=== PATIENT | female | born 1960 | race Caucasian/White ===

== ENCOUNTER 2017-11-27 13:49 | Emergency (ER) | payer OTHER ==
[~2017-11-27] VITALS: Ht 152.4 cm; Wt 75.7 kg
[~2017-11-27 13:49] MED LIST: ALBUAER2 INH; CLX20 PO; CRDCD240 PO; FLUT0.0529 NAE; LEVO-459 PO; PRLSR20 PO; SPIR25TA PO; TOPI25TA99 PO
[2017-11-27 13:51] VITALS: TEMP 37.5; Ht 152.4 cm; Wt 75.7 kg
[2017-11-27] MEDS ORDERED: SODIUM CHLORIDE 0.9% 1000ML 1,000 ML IV STA (14:11)
[2017-11-27] MEDS ORDERED: ONDANSETRON INJ 2 MG/ML 2 ML VIAL IV STA (14:11)
--- NOTE | 2017-11-27 14:17 | EMERGENCY ROOM VISIT NOTE ---
History First contact with patient: 13:57 Chief Complaint: FLU LIKE SX Stated Complaint: FLU, DIARRHEA History of Present Illness The patient is a 57 year old female who presents to the Emergency Room with complaints of vomiting and diarrhea since . The patient states last , she was not feeling well and was unable to keep any food or liquids down. She states that it improved for the next few days, but yesterday her symptoms returned. The patient states the diarrhea is liquid. She has gone several times in the past 24 hours. She states on she had the same type of episode. She did not move her bowels at all from Saturday until Saturday. The patient has taken no medications for her symptoms. She denies any upper respiratory infection symptoms including congestion, runny nose, sore throat, cough, dyspnea, chest pain. She states she did not check her temperature, but did have significant chills overnight. She describes some lower abdominal pain which she describes as like a twisting sensation and crampy. She does have some diffuse tenderness throughout the abdomen. The pain comes and goes. The patient did contact her PCP and Dr. Pollock, who she does know personally. It was recommended that she come to the emergency department for IV fluids. The patient does have a history of diverticulitis with abscess/rupture. She states her symptoms now do not feel like her previous episodes of diverticulitis. Review of Systems A complete 10 point review of systems was reviewed with the patient with pertinent positives and negatives as per history of present illness. All else were negative. Past Medical/Surgical History Medical Problems: (1) Benign hypertension (2) Depression (3) Diverticulitis of colon (4) Esophagitis (5) Shortness of breath Social History Smoking Status: Never Smoker Alcohol Use: none Drug Use: none Marital Status: Housing Status: lives with family Occupation Status: employed Current/Historical Medications Scheduled Citalopram (Citalopram Hydrobromide), 20 MG PO DAILY Diltiazem Hcl (Diltiazem Cd), 240 MG PO DAILY Spironolactone (Aldactone), 50 MG PO DAILY Topiramate (Topamax ), 25 MG PO DAILY Physical Exam Vital Signs Date Time Temp Pulse Resp B/P (MAP) Pulse Ox O2 Delivery O2 Flow Rate FiO2 11/27/17 15:08 85 16 106/65 94 Room Air 11/27/17 13:51 37.5 106 18 130/86 96 Room Air Physical Exam VITALS: Vitals are noted on the nurse's note and reviewed by myself. Vital signs stable. GENERAL: This is a 57-year-old white female, in no acute distress, nondiaphoretic, well-developed well-nourished. SKIN: The skin was without rashes, erythema, edema, or bruising. There is no tenting of the skin. Capillary reflex less than 2 seconds. HEAD: Normocephalic atraumatic. EARS: External auditory canals clear, tympanic membranes pearly paredes without erythema or effusion bilaterally. EYES: Pupils equal round and reactive to light and accommodation. Conjunctivae without injection, sclerae without icterus. Extraocular movements intact. NOSE: Patent, turbinates without inflammation or discharge. No sinus tenderness. MOUTH: Mucous membranes moist. Tonsils are not enlarged. Pharynx without erythema or exudate. Uvula midline. Airway patent. Tongue does not deviate. NECK: Supple without nuchal rigidity. No lymphadenopathy. No thyromegaly. Cervical spine is nontender. No JVD. HEART: Regular rate and rhythm without murmurs gallops or rubs. LUNGS: Clear to auscultation bilaterally without wheezes, rales or rhonchi. No dullness to percussion. No retractions or accessory muscle use. ABDOMEN: Positive bowel sounds x 4. Normal tympanic percussion. Mild tenderness in the lower abdomen/pelvis. This was not in any specific location, and not over McBurney's point. The abdomen was soft, otherwise nontender, without masses or organomegaly. García sign negative. No guarding or rebound tenderness. Rovsing's negative. MUSCULOSKELETAL: No muscle atrophy, erythema, or edema noted. Full range of motion without joint tenderness in all extremities. No tenderness to palpation. Normal gait. Strength 5/5 throughout. NEURO: Patient was alert and oriented to person place and time. Normal sensation to light and sharp touch. Deep tendon reflexes 2+ throughout. No focal neurological deficits. Medical Decision & Procedures ER Provider Diagnostic Interpretation: CBC was without leukocytosis, anemia, thrombocytopenia. CMP shows elevated AST, ALT, and alkaline phosphatase. Otherwise, without renal or electrolyte abnormalities. Lipase was normal. Laboratory Results 11/27/17 14:20 Red Blood Count 4.78, Mean Corpuscular Volume 88.7, Mean Corpuscular Hemoglobin 29.3, Mean Corpuscular Hemoglobin Concent 33.0, Mean Platelet Volume 10.0, Neutrophils (%) (Auto) 78.5, Lymphocytes (%) (Auto) 8.5, Monocytes (%) (Auto) 12.4, Eosinophils (%) (Auto) 0.1, Basophils (%) (Auto) 0.4, Neutrophils # (Auto ) 5.51, Lymphocytes # (Auto) 0.60, Monocytes # (Auto) 0.87, Eosinophils # (Auto ) 0.01, Basophils # (Auto) 0.03 11/27/17 14:20 Test 11/27/17 14:20 White Blood Count 7.03 K/uL (4.8-10.8) Red Blood Count 4.78 M/uL (4.2-5.4) Hemoglobin 14.0 g/dL (12.0-16.0) Hematocrit 42.4 % (37-47) Mean Corpuscular Volume 88.7 fL (80-100) Mean Corpuscular Hemoglobin 29.3 pg (25-34) Mean Corpuscular Hemoglobin Concent 33.0 g/dl (32-36) Platelet Count 200 K/uL (130-400) Mean Platelet Volume 10.0 fL (7.4-10.4) Neutrophils (%) (Auto) 78.5 % Lymphocytes (%) (Auto) 8.5 % Monocytes (%) (Auto) 12.4 % Eosinophils (%) (Auto) 0.1 % Basophils (%) (Auto) 0.4 % Neutrophils # (Auto) 5.51 K/uL (1.4-6.5) Lymphocytes # (Auto) 0.60 K/uL (1.2-3.4) Monocytes # (Auto) 0.87 K/uL (0.11-0.59) Eosinophils # (Auto) 0.01 K/uL (0-0.5) Basophils # (Auto) 0.03 K/uL (0-0.2) RDW Standard Deviation 49.8 fL (36.4-46.3) RDW Coefficient of Variation 15.5 % (11.5-14.5) Immature Granulocyte % (Auto) 0.1 % Immature Granulocyte # (Auto) 0.01 K/uL (0.00-0.02) Anion Gap 8.0 mmol/L (3-11) Est Creatinine Clear Calc Drug Dose 69.6 ml/min Estimated GFR () 92.0 Estimated GFR (Non- 79.4 BUN/Creatinine Ratio 19.1 (10-20) Calcium Level 9.4 mg/dl (8.5-10.1) Total Bilirubin 1.0 mg/dl (0.2-1) Aspartate Amino Transf (AST/SGOT) 64 U/L (15-37) Alanine Aminotransferase (ALT/SGPT) 86 U/L (12-78) Alkaline Phosphatase 121 U/L (45-117) Total Protein 7.0 gm/dl (6.4-8.2) Albumin 3.9 gm/dl (3.4-5.0) Globulin 3.1 gm/dl (2.5-4.0) Albumin/Globulin Ratio 1.2 (0.9-2) Lipase 122 U/L (73-393) Medications Administered Medications (Trade) Dose Ordered Sig/Rashid Route Start Time Stop Time Status Last Admin Dose Admin Sodium Chloride 1,000 ml @ 999 mls/hr Q1H1M STAT IV 11/27/17 14:11 11/27/17 15:11 DC 11/27/17 14:35 999 MLS/HR Ondansetron HCl (Zofran Inj) 4 mg NOW STAT IV 11/27/17 14:11 11/27/17 14:13 DC 11/27/17 14:35 4 MG ED Course The patient was seen and evaluated as above. IV access obtained, labs drawn. The patient was given 1 L normal saline solution and 4 mg Zofran IV. I did reassess the patient. She states she is feeling about the same. She has not had any episodes of diarrhea or vomiting while here in the emergency department. She was unable to provide a urine or stool sample. I encourage the patient to eat while here in the emergency department to verify that she is able to tolerate foods and liquids. The patient ate applesauce, crackers, and some dwayne vicenta without vomiting or experiencing diarrhea. I asked the patient if there is anything else I could do to make her feel better, and she states no. I did offer the patient antidiarrheals while here in the emergency department, and she declines. Discharge instructions reviewed, and the patient was discharged home in good condition. Medical Decision Etiologies such as appendicitis, diverticulitis, obstruction, inflammatory bowel disease, renal colic, PUD, biliary pathology, pancreatitis, mesenteric ischemia, aortic pathology, infections, gastroenteritis, genitourinary, UTI, perforated viscus, as well as others were entertained. The patient presents today complaining of ringing and diarrhea which has been intermittent since last . She states she is unable to tolerate any food or liquids. The patient did contact her PCP as well as Dr. Pollock, director of personnel who she knows personally, and was encouraged to come to the emergency department. She states she does have a prescription of Zofran at the pharmacy from her PCP that she needs to fill. Basic labs were drawn, and did show slightly elevated liver function studies. The patient was encouraged to follow up with her PCP regarding this finding. The patient was unable to provide a stool or urine sample while here in the emergency department. She was given 1 L normal saline solution, and states she did not feel significantly improved. I do suspect a viral gastroenteritis, and I advised the patient that management included symptomatic treatment. I encouraged her to follow up with her PCP if she is not experiencing improvement in one week. She was also given instructions on when to return to the emergency department if her symptoms worsen. Medication Reconcilliation Current Medication List: was personally reviewed by me Blood Pressure Screening Patient's blood pressure: Normal blood pressure Impression Primary Impression: Gastroenteritis Departure Information Dispostion Home / Self-Care Condition GOOD Referrals Valente Wood M.D. (PCP) Patient Instructions ED Gastroenteritis Viral, My [facility] Additional Instructions You have been treated in the Emergency Department your Abdominal Pain. Laboratory results have ruled out any emergent causes for your abdominal pain which would warrant admission or surgery. We did not perform imaging at this time, however, if your abdominal pain worsens, return to the ED for imaging to evaluate for possible surgical etiologies. You have been prescribed Zofran to be used for any nausea or vomiting. Take as prescribed. As discussed, your LFTs were slightly elevated. Please follow-up with your PCP regarding this finding. For pain control, you can use the following [id number] medicines (if >12 yo): Ibuprofen(Motrin, Advil) may be used for fever or pain. Use 600mg every six hours as needed. Take with food. Avoid using more than 2400mg in a 24 hour period. Do not use 2400mg per day for more than three consecutive days without physician direction. Prolonged inappropriate use can lead to stomach upset or ulcers. (AND/OR) Acetaminophen(Tylenol) may be used for fever or pain. Use 1000mg every six hours as needed. Avoid using more than 3000mg in a 24 hour period. Drink plenty of water/electrolyte solution and stay well hydrated. You may consider Imodium OTC for diarrhea as directed. Consider a bland diet and avoid dairy. As with any trip to the Emergency Department, you should follow-up with your Primary Care Provider from today's visit. Return to the emergency department if your symptoms persist despite treatment plan outlined above or if the following symptoms occur: increased fevers, chills , worsening nausea/vomiting, blood in your stool or urine.
[2017-11-27 14:42] LABS: BASO % 0.4 %; BASO ABS # 0.03 K/uL (0-0.2); COMPLETE YES; EOS % 0.1 %; HEMATOCRIT 42.4 % (37-47); IG% 0.1 %; LYMPH % 8.5 %; MEAN CELL VOLUME 88.7 fL (80-100); MEAN CORPUSCULAR HEMOGLOBIN 29.3 pg (25-34); MONO % 12.4 %; NEUT % 78.5 %; PLATELET COUNT 200 K/uL (130-400); RED BLOOD COUNT 4.78 M/uL (4.2-5.4); WHITE BLOOD COUNT 7.03 K/uL (4.8-10.8)
[2017-11-27 15:00] LABS: BUN/CREATININE RATIO 19.1 (10-20); CALCIUM 9.4 mg/dl (8.5-10.1); CREATININE 0.83 mg/dl (0.60-1.20); POTASSIUM 3.4 mmol/L (3.5-5.1)
[2017-11-27 15:03] LABS: ALB/GLOB RATIO 1.2 (0.9-2)
[2017-11-27] MEDS ORDERED: SPIR50TA3 PO (15:03)
[2017-11-27] MEDS ORDERED: CLX20 PO (15:03)
[2017-11-27] MEDS ORDERED: DLTCD/240 PO (15:03)
[2017-11-27 16:33] VITALS: BP 116/68; PULSE 79; O2SAT 93
== END 2017-11-27 16:28 | disposition home or self-care (01) ==
LOC: C.EDB 13:50
DX: K52.9 Noninfective gastroenteritis and colitis, unspecified (principal); I10 Essential (primary) hypertension; F32.9 Major depressive disorder, single episode, unspecified; Z79.899 Other long term (current) drug therapy

== ENCOUNTER 2020-03-22 15:34 | Observation (INO) ==
--- OUTSIDE RECORDS SUMMARY | 2020-03-22 15:36 | External Medical Summary | Continuity of Care Document ---
:1960 Author Name Renetta Coronado, Provider Address Unavailable Unavailable , Care Team Providers Name Role Phone April Lawson PA-C Unavailable [email or web address] [employer] DO Unavailable [email or web address] Marian Paz M.D. 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) Abdominal pain (789.00) (R10.9) Diverticulitis of colon (562.11) (K57.32) Anxiety (300.00) (F41.9) Hypertension (401.9) (I10) Acute sinusitis (461.9) (J01.90) Esophageal reflux (530.81) (K21.9) Shortness of breath (786.05) (R06.02) Acute bronchitis (466.0) (J20.9) Nephrolithiasis (592.0) (N20.0) Encounter for routine gynecological examination (V72.31) (Z0 1.419) Palpitations (785.1) (R00.2) Microscopic hematuria (599.72) (R31.29) Hyperlipidemia (272.4) (E78.5) Impaired fasting glucose (790.21) (R73.01) Migraine headache (346.90) (G43.909) Allergies and Adverse Reactions Aldactazide TABS (Allergy) Reaction: Oth er Lasix TABS (Allergy) Medications [facility] Omeprazole 20 MG Oral Tablet Delayed Release; Take 1 tablet daily BLADE Lawson Quantity: 30 Refills: 5 Maxalt-EMBROIDERY SPECIALIST 10 MG Oral Tablet Disintegrat ing; TAKE 1 TABLET AT ONSET OF HEADACHE. MAY REPEAT EVERY 2 HOURS NEEDED. MAXIMUM 3 TABLETS IN 24 HOURS. Ivonne Paz Quantity: 9 Refills: 5 Propoxyphene N-Acetaminophen 100-650 MG TABS; 1-2 TABS Q 6HR PRN PAIN Ivonne Paz Quantity: 90 Refills: 0 Dyazide 37.5-25 MG Oral Capsule; TAKE 1 CAPSULE DAILY. Refills: 0 Procedures History of Colostomy Status: Completed History of Hernia Repair Status: Complet ed History of Elbow Surgery Status: Complet ed History of Exploratory Laparotomy Status : Completed History of Gallbladder Surgery Status: C ompleted History of Type 2 diabetes mellitus Stat us: Completed History of Hypertension Status: Complete d Immunizations Immunizations not documented Family History Father Family history of Colon Cancer (V16.0) Status: Active Social History - Smoking Status Tobacco smoking consumption unknown Plan of Treatment Planned Observations Planned Goals not documented Results No Known Results Results not documented
--- OUTSIDE RECORDS SUMMARY | 2020-03-22 15:36 | External Medical Summary | Continuity of Care Document ---
:1960 Author Name Renetta Coronado, Provider Address Unavailable Unavailable , Care Team Providers Name Role Phone April Lawson PA-C Unavailable [email or web address] Cable DO Unavailable [email or web address] Marian Paz M.[email or web address]. 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
[2020-03-22 16:09] LABS: Basophils # (auto) 0.05 K/uL (0-0.2); Basophils % (auto) 0.7 %; Eosinophils # (auto) 0.16 K/uL (0-0.5); Eosinophils % (auto) 2.2 %; Hematocrit (blood only) 46.4 % (37-47); Hemoglobin 15.5 g/dL (12.0-16.0); Immature Granulocytes # (auto) 0.01 K/uL (0.00-0.02); Immature Granulocytes % (auto) 0.1 %; Lymphocytes # (auto) 2.25 K/uL (1.2-3.4); Lymphocytes % (auto) 30.8 %; Mean Corpuscular Hemoglobin 31.1 pg (25-34); Mean Corpuscular Hgb Conc 33.4 g/dL (32-36); Mean Platelet Volume 10.2 fL (7.4-10.4); Monocytes # (auto) 0.79 K/uL (0.11-0.59); Monocytes % (auto) 10.8 %; Neutrophils # (auto) 4.05 K/uL (1.4-6.5); Neutrophils % (auto) 55.4 %; Platelet Count 261 K/uL (130-400); RDW Coefficient of Variation 14.1 % (11.5-14.5); RDW Standard Deviation 47.9 fL (36.4-46.3); Red Blood Count 4.99 M/uL (4.2-5.4); White Blood Count 7.31 K/uL (4.8-10.8)
--- NOTE | 2020-03-22 16:10 | Emergency Department Note ---
Impression & Plan Chest pain ED Provider Note Provider: Sha Sr MD DATE OF SERVICE: 03/22/2020 CHIEF COMPLAINT: Chest pressure/pain HISTORY OF PRESENT ILLNESS: Patient is a 59-year-old female with a past medical history of asthma, GERD, prediabetes, IBS presenting today with report of chest pressure and pain over about 4 days. States is worse with exertion better at rest but sometimes does occur at rest. Patient states she has felt increasingly short of breath walking. Denies any palpitations or diaphoresis. Central chest pressures with some radiation to left side of the chest and shoulder. No trauma. No fever. No URI symptoms. No sick contacts. No travel. No leg swelling. Patient denies any GI symptomatologies. Patient states she tried her home albuterol nebulizer nebulizer without change and this does not feel like her asthma to her. Patient is a non-smoker. Referred from her primary doctor's office and arrived via private vehicle due to lateral EKG new T wave inversions noted there. Did review prior chest pain admission and rule out in December 2018. Given 4 baby aspirin in the PCPs office. REVIEW OF SYSTEMS: A total of 10 review of systems was obtained and negative except as stated above in the HPI. 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. Non-smoker. Lives with son PHYSICAL EXAM: GENERAL: alert and oriented in no acute distress on stretcher in face mask Head: normocephalic and atraumatic EYES: No injection, discharge or icterus. NECK: Trachea midline without obvious mass. ENT: Mucous membranes pink and moist. LUNGS: Airway patent. No retractions. Breath sounds clear with good air entry bilaterally. HEART: Regular rate and rhythm. No chest wall tenderness ABDOMEN: Soft and non-tender, without guarding or rebound. SKIN: Acyanotic, warm, dry, without rashes EXTREMITIES: Without swelling, tenderness or deformity NEUROLOGICAL: No focal deficits. No aphasia. No facial droop or slurred speech. EK bpm normal sinus rhythm. No PVC. No acute ST segment elevations noted. QTc normal. Lateral T wave inversions V4 V5 V6 appears new compared to December 152018. CONTINUOUS CARDIAC MONITORING: was ordered and showed a heart rate of bpm in NSR Patient's hypertension was referred to the hospitalist/PCP HOSPITAL COURSE: 1548 Patient was first seen and H&P performed. 172 Patient reassessed and updated. Patient was with decreased pressure across her chest 180 patient was updated with results. Discussed plan of care. 1809 Discussed with [facility] Hospitalist team Patient's laboratory studies and imaging reviewed. Differential includes Cardiac ischemia, aortic dissection, pulmonary embolism, pneumothorax, pneumonia, pericarditis, myocarditis, esophageal rupture, GERD, cholecystitis, pancreatitis, musculoskeletal, as well as other pathologies. IMPRESSION/MEDICAL DECISION MAKING: Patient presents with several days of chest pressure with some shortness of breath. Denies any fever URI symptoms. Doubt this represents coronavirus. Lower suspicion for infection. Doubt dissection. Benign abdomen. EKG does n ote today new lateral T wave inversions. D-dimer sent troponin and basic labs. D-dimer was sent to help exclude PE was elevated. CT of the chest was completed. Does have concerning features for ACS. Laboratory studies likely reveal no signs of anemia or leukocytosis. X-ray is clear. Patient story is highly concerning. The new EKG findings all not specific are concerning for cardiac issues. Discussed with the patient recommend further observation here in the hospital. She is in agreement this plan. DIAGNOSIS: Chest pain DISPOSITION: Hospitalist will evaluate Past Med/Surg History Social History Preferred Language: Albanian Communication Ability: Effective Beliefs That Will Affect Care: Yazidi Yazidi Beliefs: Scientology Current Living Situation: Family Feels Safe at Home: Yes Smoking Status: Never smoker Second Hand Exposure: No ; Hx Alcohol Use: Yes Alcohol type: wine Hx Substance Use: No Allergies Allergies Allergy/AdvReac Type Severity Reaction Status Date / Time adhesive Allergy Unknown Rash Verified 03/22/20 16:27 chocolate flavor Allergy Unknown Unknown Verified 03/22/20 16:27 amoxicillin [From Augmentin] Allergy Rash Verified 03/22/20 16:27 clavulanic acid Allergy Rash Verified 03/22/20 16:27 [From Augmentin] peanut AdvReac Intermediate NUTS,PEANUTS-ABDOMINAL Verified 03/22/20 16:27 PAIN Home Meds Home Medications Medication Instructions Recorded Confirmed albuterol sulfate 2.5 mg INHALATION QID PRN 12/15/18 03/22/20 albuterol sulfate [Proventil HFA] 2 puff INHALATION Q6H PRN 12/15/18 03/22/20 citalopram [Celexa] 20 mg PO QAM 12/15/18 03/22/20 diltiazem HCl 240 mg PO QAM 12/15/18 03/22/20 spironolactone 50 mg PO QAM 12/15/18 03/22/20 topiramate [Topamax] 50 mg PO QAM 03/22/20 03/22/20 Results & Data (ED) Vital Signs Vital Signs - 24 hr 03/22/20 15:34 03/22/20 15:41 03/22/20 15:44 Temperature 36.7 C Temperature Source Oral Pulse Rate 85 80 74 Pulse Rate from SpO2 Sensor 75 Respiratory Rate 19 18 Blood Pressure 156/102 H 156/98 H Blood Pressure Mean 120 111 Blood Pressure Position Sitting Pulse Oximetry 92 98 98 Oxygen Delivery Method Room Air Sepsis Recent Fever Within 48 Hours No Sepsis New/Unexplained Change in Mental Status No Sepsis Action Taken by Nursing No Action Required 03/22/20 15:47 03/22/20 15:50 03/22/20 16:00 Temperature Temperature Source Pulse Rate 77 78 78 Pulse Rate from SpO2 Sensor 76 79 78 Respiratory Rate 15 23 17 Blood Pressure Blood Pressure Mean Blood Pressure Position Pulse Oximetry 97 97 97 Oxygen Delivery Method Sepsis Recent Fever Within 48 Hours Sepsis New/Unexplained Change in Mental Status Sepsis Action Taken by Nursing 03/22/20 16:10 03/22/20 16:20 03/22/20 16:30 Temperature Temperature Source Pulse Rate 79 77 75 Pulse Rate from SpO2 Sensor 79 76 76 Respiratory Rate 16 15 15 Blood Pressure Blood Pressure Mean Blood Pressure Position Pulse Oximetry 97 97 96 Oxygen Delivery Method Sepsis Recent Fever Within 48 Hours Sepsis New/Unexplained Change in Mental Status Sepsis Action Taken by Nursing 03/22/20 16:40 03/22/20 16:50 03/22/20 17:00 Temperature Temperature Source Pulse Rate 71 79 77 Pulse Rate from SpO2 Sensor 71 79 77 Respiratory Rate 13 14 13 Blood Pressure Blood Pressure Mean Blood Pressure Position Pulse Oximetry 97 96 96 Oxygen Delivery Method Sepsis Recent Fever Within 48 Hours Sepsis New/Unexplained Change in Mental Status Sepsis Action Taken by Nursing 03/22/20 17:10 03/22/20 17:20 03/22/20 17:30 Temperature Temperature Source Pulse Rate 78 82 80 Pulse Rate from SpO2 Sensor 78 83 79 Respiratory Rate 12 14 16 Blood Pressure Blood Pressure Mean Blood Pressure Position Pulse Oximetry 96 96 96 Oxygen Delivery Method Sepsis Recent Fever Within 48 Hours Sepsis New/Unexplained Change in Mental Status Sepsis Action Taken by Nursing 03/22/20 17:31 Temperature Temperature Source Pulse Rate 78 Pulse Rate from SpO2 Sensor 79 Respiratory Rate 13 Blood Pressure 131/90 Blood Pressure Mean 99 Blood Pressure Position Pulse Oximetry 95 Oxygen Delivery Method Sepsis Recent Fever Within 48 Hours Sepsis New/Unexplained Change in Mental Status Sepsis Action Taken by Nursing Laboratory Data Result diagrams: 03/22/20 15:57 03/22/20 15:57 Lab Results 03/22/20 03/22/20 03/22/20 Range/Units 15:57 15:57 15:57 WBC 7.31 (4.8-10.8) K/uL RBC 4.99 (4.2-5.4) M/uL Hgb 15.5 (12.0-16.0) g/dL Hct 46.4 (37-47) % MCV 93.0 (80-100) fL MCH 31.1 (25-34) pg MCHC 33.4 (32-36) g/dL RDW Std Deviation 47.9 H (36.4-46.3) fL RDW Coeff of Holly 14.1 (11.5-14.5) % Plt Count 261 (130-400) K/uL MPV 10.2 (7.4-10.4) fL Immature Gran % (Auto) 0.1 % Neut % (Auto) 55.4 % Lymph % (Auto) 30.8 % Garrard % (Auto) 10.8 % Eos % (Auto) 2.2 % Baso % (Auto) 0.7 % Immature Gran # (Auto) 0.01 (0.00-0.02) K/uL Neut # (Auto) 4.05 (1.4-6.5) K/uL Lymph # (Auto) 2.25 (1.2-3.4) K/uL Garrard # (Auto) 0.79 H (0.11-0.59) K/uL Eos # (Auto) 0.16 (0-0.5) K/uL Baso # (Auto) 0.05 (0-0.2) K/uL PT Cancelled INR Cancelled APTT Cancelled PTT Ratio Cancelled D-Dimer Cancelled Sodium 140 (136-145) mmol/L Potassium 3.4 L (3.5-5.1) mmol/L Chloride 110 H (98-107) mmol/L Carbon Dioxide 24 (21-32) mmol/L Anion Gap 6.0 (3-11) BUN 19 H (7-18) mg/dl Creatinine 1.12 (0.6-1.2) mg/dl Est Cr Clr Drug Dosing 56.3 ml/min Est GFR ( Amer) 63.1 Est GFR (Non-Af Amer) 54.5 BUN/Creatinine Ratio 17.1 (10-20) Glucose 111 H (70-99) mg/dl Calcium 9.9 (8.5-10.1) mg/dl Magnesium 2.2 (1.8-2.4) mg/dl Total Bilirubin 0.3 (0.2-1) mg/dl AST 14 L (15-37) U/L ALT 27 (12-78) U/L Alkaline Phosphatase 84 (45-117) U/L Troponin I < 0.015 (0-0.045) ng/ml Total Protein 7.1 (6.4-8.2) gm/dl Albumin 4.4 (3.4-5.0) gm/dl Globulin 2.7 (2.5-4.0) gm/dl Albumin/Globulin Ratio 1.6 (0.9-2) Lipase 173 (73-393) U/L 03/22/20 Range/Units 16:35 WBC (4.8-10.8) K/uL RBC (4.2-5.4) M/uL Hgb (12.0-16.0) g/dL Hct (37-47) % MCV (80-100) fL MCH (25-34) pg MCHC (32-36) g/dL RDW Std Deviation (36.4-46.3) fL RDW Coeff of Holly (11.5-14.5) % Plt Count (130-400) K/uL MPV (7.4-10.4) fL Immature Gran % (Auto) % Neut % (Auto) % Lymph % (Auto) % Garrard % (Auto) % Eos % (Auto) % Baso % (Auto) % Immature Gran # (Auto) (0.00-0.02) K/uL Neut # (Auto) (1.4-6.5) K/uL Lymph # (Auto) (1.2-3.4) K/uL Garrard # (Auto) (0.11-0.59) K/uL Eos # (Auto) (0-0.5) K/uL Baso # (Auto) (0-0.2) K/uL PT 11.0 INR 1.0 APTT 25.8 PTT Ratio 0.9 D-Dimer 540 H* Sodium (136-145) mmol/L Potassium (3.5-5.1) mmol/L Chloride (98-107) mmol/L Carbon Dioxide (21-32) mmol/L Anion Gap (3-11) BUN (7-18) mg/dl Creatinine (0.6-1.2) mg/dl Est Cr Clr Drug Dosing ml/min Est GFR ( Amer) Est GFR (Non-Af Amer) BUN/Creatinine Ratio (10-20) Glucose (70-99) mg/dl Calcium (8.5-10.1) mg/dl Magnesium (1.8-2.4) mg/dl Total Bilirubin (0.2-1) mg/dl AST (15-37) U/L ALT (12-78) U/L Alkaline Phosphatase (45-117) U/L Troponin I (0-0.045) ng/ml Total Protein (6.4-8.2) gm/dl Albumin (3.4-5.0) gm/dl Globulin (2.5-4.0) gm/dl Albumin/Globulin Ratio (0.9-2) Lipase (73-393) U/L Administered Medications Ioversol (Optiray 320 125ml) 119 ml IV ONCE PRN PRN Reason: Interaction Checking Stop: 03/26/20 17:50 Last Admin: 03/22/20 17:51 Dose: 119 ml Documented by: [id number] Discharge Plan Visit Data Chief Complaint: Chest Pain Stated Complaint: CHEST PAIN ED Provider: Sha Sr Discharge Problem: Chest pain Forms Stand Alone Forms: [facility] Prescriptions Prescriptions: No Action albuterol sulfate 2.5 mg /3 mL (0.083 %) Solution For Nebulization 2.5 mg INHALATION QID PRN (Reason: Shortness Of Breath Or Wheezing) RF: 0 diltiazem HCl 240 mg Capsule,Extended Release 24 Hr 240 mg PO QAM RF: 0 citalopram [Celexa] 20 mg Tablet 20 mg PO QAM RF: 0 albuterol sulfate [Proventil HFA] 90 mcg/actuation Hfa Aerosol Inhaler 2 puff INHALATION Q6H PRN (Reason: Shortness Of Breath Or Wheezing) RF: 0 spironolactone 50 mg Tablet 50 mg PO QAM RF: 0 topiramate [Topamax] 50 mg Tablet 50 mg PO QAM RF: 0 Discharge Problem: Chest pain Qualifiers: Chest pain type: unspecified Qualified Code(s): R07.9 - Chest pain, unspecified
[2020-03-22 16:28] LABS: Alanine Aminotransferase 27 U/L (12-78); Albumin Level 4.4 gm/dl (3.4-5.0); Aspartate Aminotransferase 14 U/L (15-37); BUN Creatinine Ratio 17.1 (10-20); Blood Urea Nitrogen 19 mg/dl (7-18); Calcium 9.9 mg/dl (8.5-10.1); Carbon Dioxide 24 mmol/L (21-32); Chloride 110 mmol/L (98-107); Creatinine Clr Calc Pharmacy 56.3 ml/min; Est GFR (African American) 63.1; Est GFR (Non-African American) 54.5; Glucose 111 mg/dl (70-99); Lipase 173 U/L (73-393); Magnesium 2.2 mg/dl (1.8-2.4); Potassium 3.4 mmol/L (3.5-5.1); Sodium 140 mmol/L (136-145)
[2020-03-22 16:33] LABS: Albumin Globulin Ratio 1.6 (0.9-2); Alkaline Phosphatase 84 U/L (45-117); Bilirubin,Total 0.3 mg/dl (0.2-1); Globulin 2.7 gm/dl (2.5-4.0); Total Protein 7.1 gm/dl (6.4-8.2); Troponin I < 0.015 ng/ml (0-0.045)
--- NOTE | 2020-03-22 16:38 | XRay Report ---
XR chest 1V portable HISTORY: 59 years-old Female Chest Pain acute atypical chest pain COMPARISON: Chest radiographs and CTA chest 12/15/2018 TECHNIQUE: Portable AP view of the chest FINDINGS: Cardiac silhouette is mildly enlarged. Mild right hemidiaphragmatic elevation. No pneumothorax, pleur al effusion, airspace consolidation or overt pulmonary edema. Bones of the chest appear grossly intac t. Cholecystectomy. IMPRESSION: No acute process. ACT 112: Negative or not required by law. The above report was generated using voice recognition software. It may contain grammatical, syntax o r spelling errors. Electronically signed by: Kingsley Ferraor M.D. 03/22/2020 4:37 PM
--- NOTE | 2020-03-22 16:40 | Electrocardiogram Report ---
Test Reason : Blood Pressure : / mmHG Vent. Rate : 069 BPM Atrial Rate : 069 BPM P-R Int : 168 ms QRS Dur : 096 ms QT Int : 382 ms P-R-T Axes : 036 -18 016 degrees QTc Int : 409 ms Normal sinus rhythm Nonspecific T wave abnormality Abnormal ECG When compared with ECG of 15-DEC-2018 17:02, Nonspecific T wave abnormality now evident in Anterolateral leads Confirmed by Dayday Bullock ([id number]) on 03/22/2020 4:40:36 PM Referred By: Confirmed By:Guerrero Bullock
[2020-03-22 17:05] LABS: Partial Thromboplastin Ratio 0.9; Partial Thromboplastin Time 25.8 Seconds (21.0-31.0)
[2020-03-22 17:43] LABS: D Dimer 540 ug/L FEU (0-500)
[2020-03-22] MEDS ORDERED: OPTIRAY 320 125ml IV PRN (17:51)
--- NOTE | 2020-03-22 18:14 | CT Scan Report ---
CT angio chest PE protocol CT DOSE: 497.70 mGy.cm HISTORY: 59 years-old Female with PE, CP, +dimer. Acute chest pain with elevated d-dimer TECHNIQUE: Multiple CTA images of the chest were obtained after the intravenous administration of 119 ml Optiray 320. Coronal and sagittal MIPS were obtained from the axial data set and were submitted for review. All measurements were obtained according to NASCET criteria. A dose lowering technique w as utilized adhering to the principles of ALARA. COMPARISON: Chest radiograph of same day, CTA chest 12/15/2018 FINDINGS: CTA: Mild cardiomegaly. No pleural effusion. No thoracic aortic aneurysm or dissection. There is patency o f the imaged great vessels. The pulmonary arterial tree is opacified to level of the subsegmental bra nches and demonstrates no filling defects to suggest pulmonary thromboembolic disease. CT CHEST: Unremarkable thyroid. There is no adenopathy. No pneumothorax, pleural effusion, overt pulmonary cathie a or airspace consolidation typical for pneumonia. Central airways appear patent. Tiny hiatal hernia. 10 mm hypodense left adrenal nodule compatible with adenoma. Cholecystectomy. Soft tissues and image d breast parenchyma appear unremarkable. Bones appear intact. IMPRESSION: 1. Mild cardiomegaly without acute intrathoracic abnormality, specifically there is no evidence of pu lmonary thromboembolic disease. 2. No pleural effusion or adenopathy. 3. Tiny hiatal hernia. 4. Cholecystectomy. ACT 112: Negative or not required by law. The above report was generated using voice recognition software. It may contain grammatical, syntax o r spelling errors. Electronically signed by: Kingsley Ferraro M.D. 03/22/2020 6:13 PM
[2020-03-22] MEDS ORDERED: ACETAMINOPHEN 325 MG TAB PO PRN (19:29)
[2020-03-22] MEDS ORDERED: POTASSIUM CHLORIDE 20 MEQ TABCR PO ONE (19:29)
[2020-03-22] MEDS ORDERED: NITROGLYCERIN SL 0.4 MG/TAB TAB SL PRN (19:29)
--- NOTE | 2020-03-22 19:52 | History & Physical Report ---
Date of Service March 22, 2020 Assessment & Plan (1) Chest pain: (2) Dyspnea on exertion: Admit to Telemetry for observation EKG done in the ED showed new T wave changes/inversions in the lateral leads. Repeat 12 lead EKG in AM Initial troponin negative. Repeat Troponin x 2 Cardiology Consulted. Plan for stress test in the AM pending Cardio recommendations. CXR negative. DDimer elevated. CTA Chest showed no PE, but did show mild cardiomegaly and tiny hiatal hernia. Potassium slightly low. Will replace with PO Potassium 40 mg x 1 (3) Hypertension: BP elevated since admission- possibly situational. Continue to monitor. Continue Diltiazem & spironolactone. (4) Asthma: No signs of acute exacerbations. Continue home inhalers (5) DVT prophylaxis: SCDs, ambulate History of Present Illness Chief Complaint: Chest Pain, CALDERON Primary Care Provider: Valente Wood MD Patient is a 59 yo female with history of asthma, HTN, migraines, prediabetes, & IBS who presented to the ED at the recommendation of her PCP, Dr. Valente Fields for chest pain and CALDERON x 4 days. The pain has been persistent over the past 4 days throughout the day and is a pressure type pain. The pain and SOB are worse with exertion. She has pain radiating into her left chest wall, but no other radiation. The pain did not improve with her inhaler or Aleve. She has been unable to lay flat and hasn't been sleeping well because of the pain and SOB. She does have a mild cough in the mornings because of her asthma, but no cough out of the ordinary. No other URI symptoms. She did have a headache 1 or 2 days ago which was not relieved by Aleve. She does use her Dulera regularly and typically uses her albuterol 4-5 times per week. She has had history of problems with asthma, but this seems different to her. She initially thought it may be GERD symptoms, but it did not improve. No change with diet. No change in appetite. No dysphagia, N/V/D/C. No edema or calf pain. No urinary symptoms. No blurred/double vision. EKG done in the ED showed new T wave changes/inversions in the lateral leads. BP elevated since admission- possibly situational. CXR negative. DDimer elevated. CTA Chest showed no PE, but did show mild cardiomegaly and tiny hiatal hernia. Potassium slightly low. Allergies Allergy/AdvReac Type Severity Reaction Status Date / Time adhesive Allergy Unknown Rash Verified 03/22/20 16:27 chocolate flavor Allergy Unknown Unknown Verified 03/22/20 16:27 amoxicillin [From Augmentin] Allergy Rash Verified 03/22/20 16:27 clavulanic acid Allergy Rash Verified 03/22/20 16:27 [From Augmentin] peanut AdvReac Intermediate NUTS,PEANUTS-ABDOMINAL Verified 03/22/20 16:27 PAIN Home Medications Home Medications Medication Instructions Recorded Confirmed Type albuterol sulfate 2.5 mg INHALATION QID PRN 12/15/18 03/22/20 History albuterol sulfate [Proventil HFA] 2 puff INHALATION Q6H PRN 12/15/18 03/22/20 History citalopram [Celexa] 20 mg PO QAM 12/15/18 03/22/20 History diltiazem HCl 240 mg PO QAM 12/15/18 03/22/20 History spironolactone 50 mg PO QAM 12/15/18 03/22/20 History ipratropium bromide 2.5 ml INHALATION QID PRN 03/22/20 03/22/20 History mometasone-formoterol [Dulera] 2 puff INHALATION BID 03/22/20 03/22/20 History sumatriptan succinate [Imitrex] 50 mg PO UD PRN 03/22/20 03/22/20 History topiramate [Topamax] 50 mg PO BID 03/22/20 03/22/20 History Past Med/Surg History Medical History (Updated 03/22/20 @ 19:44 by Janelle Love PA-C) Asthma (Chronic) Diverticulitis Hypertension (Chronic) IBS (irritable bowel syndrome) Surgical History (Updated 03/22/20 @ 19:39 by Janelle Love PA-C) H/O oophorectomy History of appendectomy History of bowel resection History of colostomy reversal Hx of cataract removal with insertion of prosthetic lens Hx of cholecystectomy Social History Preferred Language: Lao Communication Ability: Effective 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 Beliefs That Will Affect Care: None Current Living Situation: Family Current Living Situation Comment: with son Feels Safe at Home: Yes Safety Concerns: Feels Safe At This Time Smoking Status: Never smoker Second Hand Exposure: No ; Hx Alcohol Use: Yes Alcohol type: wine Hx Substance Use: No Review of Systems Review of Systems: All systems reviewed & are unremarkable except as noted in HPI & below Physical Exam Constitutional: WD/WN, vitals as above no acute distress and not ill appearing Eyes: PERRL, conjunctivae normal, anicteric sclerae ENMT: external ear and nose normal, oropharynx normal Neck: trachea midline, no thyromegaly Respiratory: normal respiratory effort, lungs clear to auscultation Cardiovascular: RRR, no murmur, no edema Gastrointestinal (Abdomen): normal bowel sounds, soft, nontender, no hepatosplenomegaly Musculoskeletal: Head/Neck/Chest: normocephalic and head atraumatic Extremities: extremities normal to inspection No edema B/L LE Skin: no rashes, warm and dry Psychiatric: A+Ox3, euthymic affect Results & Data Results & Data ([facility]) Vital Signs (Past 12 Hours) Vital Signs Temp Pulse Pulse Resp BP BP Pulse Ox 03/22/20 18:24 75 16 160/89 H 96 03/22/20 17:31 78 13 131/90 95 03/22/20 17:30 80 16 96 03/22/20 17:20 82 14 96 03/22/20 17:10 78 12 96 03/22/20 17:00 77 13 96 03/22/20 16:50 79 14 96 03/22/20 16:40 71 13 97 03/22/20 16:30 75 15 96 03/22/20 16:20 77 15 97 03/22/20 16:10 79 16 97 03/22/20 16:00 78 17 97 03/22/20 15:50 78 23 97 03/22/20 15:47 77 15 97 03/22/20 15:44 74 18 156/98 H 98 03/22/20 15:41 80 98 03/22/20 15:34 36.7 C 85 19 156/102 H 92 Diagnostic Findings Chest X-Ray: IMPRESSION: No acute process. CTA Chest: IMPRESSION: 1. Mild cardiomegaly without acute intrathoracic abnormality, specifically there is no evidence of pulmonary thromboembolic disease. 2. No pleural effusion or adenopathy. 3. Tiny hiatal hernia. 4. Cholecystectomy. Code Status & VTE Plan VTE Prophylaxis Plan VTE Prophylaxis will be ordered: Yes Supervising Physician Co-Signing Physician Notes I have seen and examined the patient and have discussed the case with the provider above. I agree with the assessment and plan as stated. 59 yo with 4 days of atypical chest pain, low risk for CAD including non-smoker, who is active and without family h/o CAD. Pain has been constant with varying intensity worse with exertion. Trop is negative. EKG abnormalities as above. ASA given in the clinic. Physical exam as above and TTP over the superior left breast/anterior left chest wall radiating into the left midaxillary line. Suspect musculoskeletal etiology. Naproxen wasn't very helpful as outpatient, however, patient only took one dose. Will give one dose of morphine now. Considered referred pain from heartburn and patient did report a h/o PPI use in the past, however, this discomfort doesn't change with food. Would try morphine in lieu of nitro as patient has migraines and don't want to give her a headache unnecessarily. Otherwise agree with plan as above. Appreciate cardiology recommendations. DO John (1) Chest pain Chest pain type: unspecified Qualified Code(s): R07.9 - Chest pain, unspecified
[2020-03-22] MEDS ORDERED: MoRPHine SULFATE 2 MG/ML CARP IV PRN (20:06)
[2020-03-22] MEDS: TOPIRAMATE 50 MG TAB PO SCH (20:35)
[2020-03-23 06:29] LABS: Hematocrit (blood only) 46.5 % (37-47); Hemoglobin 15.6 g/dL (12.0-16.0); Mean Corpuscular Hemoglobin 31.6 pg (25-34); Mean Corpuscular Hgb Conc 33.5 g/dL (32-36); Mean Corpuscular Volume 94.1 fL (80-100); Platelet Count 252 K/uL (130-400); RDW Coefficient of Variation 14.4 % (11.5-14.5); RDW Standard Deviation 48.7 fL (36.4-46.3); Red Blood Count 4.94 M/uL (4.2-5.4); White Blood Count 7.61 K/uL (4.8-10.8)
[2020-03-23 06:47] LABS: Estimated Average Glucose 128 mg/dl; Hemoglobin A1C 6.1 % (4.5-5.6)
[2020-03-23 06:57] LABS: BUN Creatinine Ratio 17.2 (10-20); Blood Urea Nitrogen 17 mg/dl (7-18); Calcium 9.9 mg/dl (8.5-10.1); Carbon Dioxide 23 mmol/L (21-32); Chloride 113 mmol/L (98-107); Creatinine Clr Calc Pharmacy 63.6 ml/min; Est GFR (African American) 74.2; Glucose 105 mg/dl (70-99); Sodium 139 mmol/L (136-145)
[2020-03-23 07:01] LABS: Chol HDL Ratio 6; Cholesterol 229 mg/dl (0-200); HDL Cholesterol 40 mg/dl; LDL Cholesterol Calculated 152 mg/dl; Triglycerides 185 mg/dl (0-150); Troponin I < 0.015 ng/ml (0-0.045); VLDL Cholesterol 37 mg/dl
[2020-03-23] MEDS: TOPIRAMATE 50 MG TAB PO SCH ×2 (08:30→21:41)
[2020-03-23] MEDS: CITALOPRAM 20 MG TAB PO SCH (08:31)
[2020-03-23] MEDS: SPIRONOLACTONE 25 MG TAB PO SCH (08:31)
[2020-03-23] MEDS: ASPIRIN 81 MG ECTAB PO SCH (08:31)
[2020-03-23] MEDS: FLUTICASONE/VILANTEROL 200/25MCG 14 PUFFS/INHALER INH SCH (08:34)
--- NOTE | 2020-03-23 08:43 | Cardiology Consultation ---
Date of Consultation March 23, 2020 Assessment & Plan (1) Chest pain: (2) Dyspnea on exertion: Asymptomatic at present. Troponin normal x 3 measurments. EKG with non specific repolarization changes in lateral leads, new compared to 2019, however, pt does have a history of LVH on past echo. Discussed options. Will proceed with exercise stress echocardiogram. (3) Hypertension: Continue diltiazem (4) Dyslipidemia (high LDL; low HDL): LDL cholesterol 152 mg/l, start atorvastatin. History of Present Illness Attending Physician: Phoenix Bae MD History of Present Illness Tootie Moran is a 59 year old female seen in cardiology consultation for the evaluation of chest discomfort and exertional shortness of breath. Symptoms have been present for 4-5 days and are not characteristic of her asthma symptoms. 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 She saw Dr Wood yesterday in the FP clinic and had new non specific repolarization changes in the lateral leads compared to a prior study performed in 12/2018. Her non specific EKG changes have persisted on the EKG performed in the ED last evening an again this am. Symptoms resolved with rest and morphine overnight and feels well now. Troponin has been negative x 3. PMH: Asthma HTN, on chronic diltiazem 240 mg daily moderate concentric LVH noted on echo 12/2018. FH: Mother of cervical cancer in her late 70's. Had GA, no stents. Father of leukemia Social History: nonsmoker Allergies Allergy/AdvReac Type Severity Reaction Status Date / Time adhesive Allergy Unknown Rash Verified 03/22/20 16:27 chocolate flavor Allergy Unknown Unknown Verified 03/22/20 16:27 amoxicillin [From Augmentin] Allergy Rash Verified 03/22/20 16:27 clavulanic acid Allergy Rash Verified 03/22/20 16:27 [From Augmentin] peanut AdvReac Intermediate NUTS,PEANUTS-ABDOMINAL Verified 03/22/20 16:27 PAIN Home Medications Home Medications Medication Instructions Recorded Confirmed Type albuterol sulfate 2.5 mg INHALATION QID PRN 12/15/18 03/22/20 History albuterol sulfate [Proventil HFA] 2 puff INHALATION Q6H PRN 12/15/18 03/22/20 History citalopram [Celexa] 20 mg PO QAM 12/15/18 03/22/20 History diltiazem HCl 240 mg PO QAM 12/15/18 03/22/20 History spironolactone 50 mg PO QAM 12/15/18 03/22/20 History ipratropium bromide 2.5 ml INHALATION QID PRN 03/22/20 03/22/20 History mometasone-formoterol [Dulera] 2 puff INHALATION BID 03/22/20 03/22/20 History sumatriptan succinate [Imitrex] 50 mg PO UD PRN 03/22/20 03/22/20 History topiramate [Topamax] 50 mg PO BID 03/22/20 03/22/20 History Patient History Medical History Asthma (Chronic) Diverticulitis Hypertension (Chronic) IBS (irritable bowel syndrome) Surgical History H/O oophorectomy History of appendectomy History of bowel resection History of colostomy reversal Hx of cataract removal with insertion of prosthetic lens Hx of cholecystectomy Social History Preferred Language: Danish Communication Ability: Effective Chicken Fancier Required: No Beliefs That Will Affect Care: None Current Living Situation: Family Current Living Situation Comment: with son Feels Safe at Home: Yes Safety Concerns: Feels Safe At This Time Smoking Status: Never smoker Second Hand Exposure: No ; Hx Alcohol Use: Yes Alcohol type: wine Hx Substance Use: No Review of Systems Review of Systems: All systems reviewed & are unremarkable except as noted in HPI & below Physical Exam Physical Exam: Temp Pulse Resp BP Pulse Ox 36.6 C 67 18 128/85 95 03/23/20 07:00 03/23/20 07:00 03/23/20 07:00 03/23/20 07:00 03/23/20 07:00 Constitutional: WD/WN, vitals as above Respiratory: normal respiratory effort, lungs clear to auscultation Cardiovascular: RRR, no murmur, no edema Gastrointestinal (Abdomen): normal bowel sounds, soft, nontender, no hepatosplenomegaly Neurologic: PERRL, EOMI, accommodation nl, no face palsy, no dysarthria Results & Data ([facility]) Vital Signs (Past 12 Hours) Vital Signs Temp Pulse Pulse Resp BP Pulse Ox 03/23/20 07:00 36.6 C 67 18 128/85 95 03/23/20 04:00 36.6 C 62 17 139/92 95 03/23/20 00:00 36.7 C 68 17 122/84 95 Laboratory Results Cardiac Enzymes 03/22/20 03/22/20 03/23/20 Range/Units 15:57 21:56 05:47 AST 14 L (15-37) U/L Troponin I < 0.015 < 0.015 < 0.015 (0-0.045) ng/ml Coagulation 03/22/20 03/22/20 Range/Units 15:57 16:35 PT Cancelled 11.0 APTT Cancelled 25.8 Lipids 03/23/20 Range/Units 05:47 Triglycerides 185 H (0-150) mg/dl Cholesterol 229 H (0-200) mg/dl HDL Cholesterol 40 mg/dl Cholesterol/HDL Ratio 6 CBC 03/22/20 03/23/20 Range/Units 15:57 05:47 WBC 7.31 7.61 (4.8-10.8) K/uL RBC 4.99 4.94 (4.2-5.4) M/uL Hgb 15.5 15.6 (12.0-16.0) g/dL Hct 46.4 46.5 (37-47) % Plt Count 261 252 (130-400) K/uL Neut # (Auto) 4.05 (1.4-6.5) K/uL Lymph # (Auto) 2.25 (1.2-3.4) K/uL Campbell # (Auto) 0.79 H (0.11-0.59) K/uL Eos # (Auto) 0.16 (0-0.5) K/uL Baso # (Auto) 0.05 (0-0.2) K/uL Comprehensive Metabolic Panel 03/22/20 03/23/20 Range/Units 15:57 05:47 Sodium 140 139 (136-145) mmol/L Potassium 3.4 L 4.0 D (3.5-5.1) mmol/L Chloride 110 H 113 H (98-107) mmol/L Carbon Dioxide 24 23 (21-32) mmol/L BUN 19 H 17 (7-18) mg/dl Creatinine 1.12 0.98 (0.6-1.2) mg/dl Glucose 111 H 105 H (70-99) mg/dl Calcium 9.9 9.9 (8.5-10.1) mg/dl AST 14 L (15-37) U/L ALT 27 (12-78) U/L Alkaline Phosphatase 84 (45-117) U/L Total Protein 7.1 (6.4-8.2) gm/dl Albumin 4.4 (3.4-5.0) gm/dl Intake and Output 03/22/20 03/23/20 03/23/20 22:59 06:59 14:59 Intake Total 300 / 640 340 / 640 Output Total 300 / 600 300 / 600 Balance 0 / 40 40 / 40 Intake: Oral 300 / 640 340 / 640 Output: Urine 300 / 600 300 / 600 Other: Weight 83.9 kg 83.9 kg (1) Chest pain Chest pain type: unspecified Qualified Code(s): R07.9 - Chest pain, unspecified
--- NOTE | 2020-03-23 11:15 | Communication Note ---
Date of Service: March 23, 2020 Presenting symptom of chest tightness reproduced on the treadmill. Will plan on advancing her diet and proceeding with cardiac cath in am.
[2020-03-23] MEDS: ATORVASTATIN 10 MG TAB PO SCH (11:32)
--- NOTE | 2020-03-23 12:14 | Electrocardiogram Report ---
Test Reason : Blood Pressure : / mmHG Vent. Rate : 065 BPM Atrial Rate : 065 BPM P-R Int : 160 ms QRS Dur : 092 ms QT Int : 426 ms P-R-T Axes : 029 -19 003 degrees QTc Int : 443 ms Normal sinus rhythm Nonspecific T wave abnormality Abnormal ECG When compared with ECG of 22-MAR-2020 15:41, No significant change was found Confirmed by Dayday Bullock ([id number]) on 03/23/2020 12:13:47 PM Referred By: Valente Wood Confirmed By:Guerrero Bullock
--- NOTE | 2020-03-23 18:20 | Hospitalist Progress Note ---
Date of Service March 23, 2020 Assessment & Plan (1) Chest pain: (2) Dyspnea on exertion: Present on admission with chest pain with exertion EKG on admission reviewed by cardiology showed non specific repolarization changes in lateral leads CT chest negative for PE Troponin x 3 negative S/P exercise stress echo done today where she developed chest tightness on the treadmill during the stress test Cardiology on board Plan to proceed for cardiac cath in am Continue aspirin and statin Clinically improves Continue monitor in tele (3) Hypertension: BP stable Continue Diltiazem & spironolactone. Continue monitor BP (4) Elevated d-dimer: CTA chest showed no PE Denies any LE swelling and tenderness (5) Asthma: No signs of acute exacerbations. Continue home inhalers (6) DVT prophylaxis: SCDs, ambulate CODE STATUS FULL CODE Admission and Anticipated Discharge Date Admission Date: March 22, 2020 Subjective Pt was seen and examined Lying in bed with no distress Pt said that she feels ok She said that she developed chest discomfort during the stress test Currently denies any chest pain, palpitation, dizziness and SOB Physical Exam Physical Exam: General- No acute distress Head- atraumatic Eyes- PERRL, EOMI, ENT- oropharynx clear Neck- supple, no JVD Lungs- clear to auscultation Heart- regular rhythm; no murmur Abdomen- normal bowel sounds, soft, nontender Extremities- no calf tenderness Neuro- alert, oriented x 3; PERRL, EOMI; no facial palsy; no dysarthria Skin- warm & dry Results & Data Results & Data ([facility]) Vital Signs (Past 12 Hours) Vital Signs Temp Pulse Pulse Resp BP Pulse Ox 03/23/20 17:00 64 03/23/20 15:47 36.8 C 72 18 120/75 96 03/23/20 11:25 37.1 C 76 18 115/82 93 03/23/20 07:00 36.6 C 67 18 128/85 95 (1) Chest pain Chest pain type: unspecified Qualified Code(s): R07.9 - Chest pain, unspecified
[2020-03-23] MEDS: SODIUM CHLORIDE 0.9% 1000ML 1,000 ML IV SCH (21:40)
[2020-03-24] MEDS ORDERED: ASPIRIN 81 MG CHEW PO ONE (07:00)
--- NOTE | 2020-03-24 08:40 | Pre Anesthesia Assessment ---
Date of Service March 24, 2020 Pre Sedation Assessment Vital Signs Temp Pulse Pulse Pulse Resp BP Pulse Ox 03/24/20 07:56 81 17 131/87 97 03/24/20 07:04 36.7 C 75 19 126/84 94 03/24/20 03:16 36.7 C 66 16 114/78 91 03/23/20 23:14 36.6 C 61 16 126/76 93 03/23/20 19:35 36.8 C 73 18 132/87 96 03/23/20 17:00 64 03/23/20 15:47 36.8 C 72 18 120/75 96 03/23/20 11:25 37.1 C 76 18 115/82 93 Cardiovascular RRR, no murmur, no edema Respiratory normal respiratory effort, lungs clear to auscultation Pre-Sedation Airway Assessment Smoking Status: Never smoker Hx Sleep Apnea: No Short, Thick Neck: No Thyromental Distance: > or= 3.5 Finger Breadths Oral Cavity: + WNL Mallampati Class: III ASA: ASA3 NPO Status Date of Last Intake of Fluids: 03/23/20 Time of Last Intake of Fluids: 18:00 Date of Last Intake of Solid Food: 03/23/20 Time of Last Intake of Solid Foods: 18:00 Procedure Planning Contraindications for Sedation: none Current Medications Reviewed: Yes Notes The planned sedation has been discussed with the patient. Informed Consent was obtained. I have identified the patient, determined the appropriateness of sedation and have assessed the patient immediately prior to the procedure. All medicine(s) and interventions are by my order.
--- NOTE | 2020-03-24 09:33 | Post Anesthesia Assessment ---
Date of Service March 24, 2020 Post Sedation Assessment Vital Signs Temp Pulse Pulse Pulse Resp BP Pulse Ox 03/24/20 07:56 81 17 131/87 97 03/24/20 07:04 36.7 C 75 19 126/84 94 03/24/20 03:16 36.7 C 66 16 114/78 91 03/23/20 23:14 36.6 C 61 16 126/76 93 03/23/20 19:35 36.8 C 73 18 132/87 96 03/23/20 17:00 64 03/23/20 15:47 36.8 C 72 18 120/75 96 03/23/20 11:25 37.1 C 76 18 115/82 93 Recovery Score Activity: Moves 4 extremities Consciousness: Fully Awake Discharge Sedation Level of Care: Fast Track Phase II Post Sedation Plan On clinical assessment, the patient appears to have tolerated the sedation without complications. Patient is recovering as anticipated. Patient will continue to be monitored by nursing and may be discharged when sedation discharge criteria are met per below protocol. Upon Completions of procedure up to 15 minutes continue every 5 minute vital signs and the P.A.R. score; then discharge to a Phase I or Fast Track to Phase II per the following guidelines: * Discharge Patient to appropriate Phase II area if PAR is 8 or greater or return to pre- procedure baseline. The post - procedure orders will be as directed. * If PAR score is less than 8 or not return to pre-procedure baseline then patient will follow Phase I monitoring till PAR is reached for Phase II. The Phase I may be done in procedure room or may call to secure a Phase I area. * If naloxone or flumazenil are used for reversal, hold in Phase I for continued monitoring from when last reversal dose was given for a minimum of 60 minutes or longer pending the nurse and/or physician discretion of patient condition before discharge to Phase II. Please call the Sedation Physician to re-evaluate and complete post-note for discharge to Phase II area. Do NOT discharge from procedure sedation or Phase 1 until post- sedation evaluation note is complete by procedure /sedation MD Sedation Discharge Instructions to be given to the patient at discharge to home.
--- NOTE | 2020-03-24 09:41 | Cardiac Catheterization ---
Cardiac Cath Procedure Full Procedure Date March 24, 2020 Pre-Procedure Diagnosis Pre-Procedure Diagnosis: Angina and Cardiothoracic Symptom AUC Score AUC Score: 7 Post-Procedure Diagnosis Post-Procedure Diagnosis: Moderate CAD and Elevated Intracardiac Pressures (LVEDp 15mmHg.) Procedure(s) Performed Procedure(s) Performed: Coronary Angiography and Left Heart Cath Mrp Controller Eulogio Crenshaw DO Lead Fabricator(s) Amita FARM MANAGEMENT AGENT Estimated Blood Loss Estimated Blood Loss: 3cc Medication(s) Medication(s): Fentanyl, Heparin, Lidocaine 1%, Nicardipine, Nitroglycerin and Versed Summary of Findings Left main engaged with the Tigr multipurpose catheter. The engagement was not optimal. I would use a JL4 for future procedures to engage left main. The left main is a large vessel which bifurcates into left anterior descending and left circumflex arteries. There is no significant obstructive disease. The LAD is a large vessel which gives rise to 2 diagonal branch vessels. There is a 20% proximal stenosis extending to the ostium followed by 30 to 40% gradual taper in the mid segment terminating in a focal, 50% stenosis followed by a small area of poststenotic dilatation. The first diagonal branch vessel is of moderate caliber demonstrating mild luminal irregularities, 10% in the mid segment. The second diagonal branch vessel is large. There is a focal, 30% proximal stenosis followed by an area of moderate luminal irregularities including 20%, and 40% mid stenosis. The left circumflex is a large nondominant vessel demonstrating mild luminal irregularities. There are 2 small obtuse marginal branch vessels and one posterior lateral branch vessel demonstrating mild luminal irreg ularities. The right coronary artery is a large dominant vessel. There is a mild, 20% proximal stenosis. Otherwise the vessels within normal limits. Posterior descending artery and posterior lateral branch vessels are normal. Hemodynamics Rest Ao:: 123/83/104 Final Ao: 134/81/105 LV: 112/7/15 Recommendations Recommendations: Management Recommendatons (FFR LAD) Specimens Specimens: None Radiation Exposure (mGy) 1108 Contrast (mls) 60 Anesthesia Moderate sedation. Start 851. End 924. Sedation monitor: Ana HERNANDEZ Procedural Complication(s) None Disposition Patient remained in [facility] for FFR of the LAD. I attest to the content of the Intraoperative Record and any orders documented therein. Any exceptions are noted below. ACC Data: [facility] Cardiac Status Clinical evaluation leading to the procedure CAD Presenation: Positive Stress Test (Anginal symptoms reproduced with exercise, however, echocardiographic images fail to demonstrate ischemia. Stress ECG equivocal.) and Stable angina Anginal Classification: CCS III Heart Failure: No Stress Echocardiogram: Yes - Indeterminant Coronary Anatomy Dominant: Right Left Main (% Stenosis): Normal LAD (% Stenosis): Proximal (20%) and Mid (30% taper to 50% focal stenosis followed by a small segment of poststenotic dilatation.) D1 (% Stenosis): Mid (10%) D2 (% Stenosis): Proximal (30%) and Mid (20% followed by 40%) Circumflex (% Stenosis): Mid (10%) OM1 (% Stenosis): Normal OM2 (% Stenosis): Normal L PL1 (% Stenosis): Normal RCA (% Stenosis): Proximal (205) R PDA (% Stenosis): Normal R PL1 (% Stenosis): Normal Diagnostic Physicians Name: Eulogio Crenshaw DO Status: Urgent Closure Device Percutaneous Entry Location: Radial Closure Device: Radial Band Recommendations: Management Recommendatons (FFR LAD) Intraprocedure Events Significant Disection: No Perforation: No
[2020-03-24] MEDS ORDERED: ADENOSINE IV SOLN 3 MG/ML 20 ML VIAL IV ONE (09:47)
--- NOTE | 2020-03-24 10:14 | Post Anesthesia Assessment ---
Date of Service March 24, 2020 Post Sedation Assessment Vital Signs Temp Pulse Pulse Pulse Resp BP Pulse Ox 03/24/20 07:56 81 17 131/87 97 03/24/20 07:04 98.1 F 75 19 126/84 94 03/24/20 03:16 98.1 F 66 16 114/78 91 03/23/20 23:14 97.9 F 61 16 126/76 93 03/23/20 19:35 98.2 F 73 18 132/87 96 03/23/20 17:00 64 03/23/20 15:47 98.2 F 72 18 120/75 96 03/23/20 11:25 98.8 F 76 18 115/82 93 Recovery Score Activity: Moves 4 extremities Respiration: Deep Breath/Cough Circulation: +/-20% PreAnes Value Consciousness: Fully Awake Oxygen Saturation: O2 needed for >90% Discharge Sedation Level of Care: Fast Track Phase II Post Sedation Plan On clinical assessment, the patient appears to have tolerated the sedation without complications. Patient is recovering as anticipated. Patient will continue to be monitored by nursing and may be discharged when sedation discharge criteria are met per below protocol. Upon Completions of procedure up to 15 minutes continue every 5 minute vital signs and the P.A.R. score; then discharge to a Phase I or Fast Track to Phase II per the following guidelines: * Discharge Patient to appropriate Phase II area if PAR is 8 or greater or return to pre- procedure baseline. The post - procedure orders will be as directed. * If PAR score is less than 8 or not return to pre-procedure baseline then patient will follow Phase I monitoring till PAR is reached for Phase II. The Phase I may be done in procedure room or may call to secure a Phase I area. * If naloxone or flumazenil are used for reversal, hold in Phase I for continued monitoring from when last reversal dose was given for a minimum of 60 minutes or longer pending the nurse and/or physician discretion of patient condition before discharge to Phase II. Please call the Sedation Physician to re-evaluate and complete post-note for discharge to Phase II area. Do NOT discharge from procedure sedation or Phase 1 until post- sedation evaluation note is complete by procedure /sedation MD Sedation Discharge Instructions to be given to the patient at discharge to home.
--- NOTE | 2020-03-24 10:26 | Cardiac Catheterization ---
ACC Data: Manager Strategic Marketing Cardiac Status Clinical evaluation leading to the procedure CAD Presenation: Unstable angina Anginal Classification: CCS III Heart Failure: No Cardiogenic Shock within 24 Hours: No Cardiac Arrest within 24 Hours: No Imaging Studies Past 6 Months: Yes Stress Studies Past 6 Months: Yes Stress Echocardiogram: Yes - Indeterminant Diagnostic Physicians Name: Dayday Presley MD Status: Elective Closure Device Percutaneous Entry Location: Radial Closure Device: Radial Band Recommendations: Medical Therapy and/or Counseling Intraprocedure Events Significant Disection: No Perforation: No Cardiac Cath Procedure Full Procedure Date March 24, 2020 Pre-Procedure Diagnosis Pre-Procedure Diagnosis: Angina AUC Score AUC Score: 7 Post-Procedure Diagnosis Post-Procedure Diagnosis: Moderate CAD Procedure(s) Performed Procedure(s) Performed: Coronary Angiography and Fractional Flow [employer] Dayday Presley MD Polymerization Supervisor(s) Amita RODRIGUEZ Estimated Blood Loss Estimated Blood Loss: 5 Medication(s) Medication(s): Adenosine, Fentanyl, Heparin and Versed Summary of Findings For full details of patient's coronary angiography please see cath report dictated by Dr. Crenshaw. Briefly, patient found to have an intermediate mid LAD stenosis. Decision to proceed with FFR. Procedure: Left main cannulated with EBU 3.5 guide BMW wire placed into distal LAD ACIST Catheter placed in the mid LAD Pd/Pa 0.93 FFR 0.88 Coronary angiography revealed no apparent complications post wire/catheter removal Summary: 1. Nonobstructive moderate mid LAD stenosis (FFR 0.88). Recommendations: Continued ASCVD risk factor modification per Dr. Crenshaw Hemodynamics Rest Ao:: 119/80/100 Final Ao: 136/79/108 LV: -- Recommendations Recommendations: Medical Therapy and/or Counseling Specimens Specimens: None Radiation Exposure (mGy) 1407 Contrast (mls) 75 Fluids (cc crystalloids) Fluids (cc crystalloids): 100 Drains Drains: none Anesthesia Moderate sedation Procedural Complication(s) None Disposition Manager Strategic Marketing Holding/Recovery I attest to the content of the Intraoperative Record and any orders documented therein. Any exceptions are noted below. [facility] Card Cath Procedure Codes Cardiac Catheterization Procedure 1: Cardiovascular Cath Procedures: 02468 (Doppler) Pressure Wire Moderate Sedation Procedure 1: Sedation/Anesthesia: 18873 Mod Sedation by a different physician ;Init15 Min Child Age 5&Up PG Care Time/CCT Total # of Minutes Spent Total Time Spent with Patient: Total time spent is greater than 50% in coordination of care (as documented) at patient's floor/unit and/or counseling patient:
[2020-03-24] MEDS: SPIRONOLACTONE 25 MG TAB PO SCH (10:48)
[2020-03-24] MEDS: FLUTICASONE/VILANTEROL 200/25MCG 14 PUFFS/INHALER INH SCH (10:49)
[2020-03-24] MEDS: CITALOPRAM 20 MG TAB PO SCH (10:52)
[2020-03-24] MEDS: ASPIRIN 81 MG ECTAB PO SCH (10:54)
[2020-03-24] MEDS: ATORVASTATIN 10 MG TAB PO SCH (10:54)
[2020-03-24] MEDS: TOPIRAMATE 50 MG TAB PO SCH (10:55)
[2020-03-24] MEDS: SODIUM CHLORIDE 0.9% 1000ML 1,000 ML IV SCH (11:59)
--- NOTE | 2020-03-24 12:57 | Hospitalist Progress Note ---
Date of Service March 24, 2020 Assessment & Plan (1) Chest pain: (2) Dyspnea on exertion: Present on admission with chest pain with exertion EKG on admission reviewed by cardiology showed non specific repolarization changes in lateral leads CT chest negative for PE Troponin x 3 negative No arrhythmia on tele monitor Cardiology on board S/P exercise stress echo done today where she developed chest tightness on the treadmill during the stress test ECHO showed normal wall motion with EF 60-65% S/P cardiac cath done 03/24/20 revealed nonobstructive moderate mid LAD stenosis (FFR 0.88). Case discussed with cardiology that recommended medical management Continue aspirin Atorvastatin increased to 80mg daily Clinically improves OK from cardiology standpoint to discharge home Post cardiac cath instruction given to patient Keep the area for the cardiac cath clean and dry to avoid any infection Do not use creams, lotions or ointment on the wound site Do not take a bath, tub soak, go in a Jacuzzi, or swim in a pool or [place] for one week after the procedure. Do not participate in strenuous activities for 3 days after the procedure. Gradually increase your activities until you reach your normal activity level within two days after the procedure. Avoid heavy lifting (more than 10 pounds) and pushing or pulling heavy objects for the first 3 days after the procedure. (3) Hypertension: BP stable Continue Diltiazem & spironolactone. Continue monitor BP (4) Elevated d-dimer: CTA chest showed no PE Denies any LE swelling and tenderness (5) Asthma: No signs of acute exacerbations. Continue home inhalers (6) DVT prophylaxis: SCDs, ambulate CODE STATUS FULL CODE Disposition Will discharge home today Follow up with your primary care provider in 1 week Check Liver enzymes in 1-2 weeks after starting the Atorvastatin Admission and Anticipated Discharge Date Admission Date: March 22, 2020 Subjective Pt was seen and examined Lying in bed with no distress Pt just had cardiac cath done this morning She said that she feels sleepy now Denies any chest pain, palpitation, dizziness and SOB Physical Exam Physical Exam: General- No acute distress Head- atraumatic Eyes- PERRL, EOMI, ENT- oropharynx clear Neck- supple, no JVD Lungs- clear to auscultation Heart- regular rhythm; no murmur Abdomen- normal bowel sounds, soft, nontender Extremities- no calf tenderness, No hematoma in the right radial wrist area Neuro- alert, oriented x 3; PERRL, EOMI; no facial palsy; no dysarthria Skin- warm & dry Results & Data Results & Data ([facility]) Vital Signs (Past 12 Hours) Vital Signs Temp Pulse Pulse Resp BP Pulse Ox 03/24/20 07:56 81 17 131/87 97 03/24/20 07:04 36.7 C 75 19 126/84 94 03/24/20 03:16 36.7 C 66 16 114/78 91 (1) Chest pain Chest pain type: unspecified Qualified Code(s): R07.9 - Chest pain, unspecified
--- NOTE | 2020-03-24 14:27 | Electrocardiogram Report ---
Test Reason : Blood Pressure : / mmHG Vent. Rate : 066 BPM Atrial Rate : 066 BPM P-R Int : 178 ms QRS Dur : 096 ms QT Int : 664 ms P-R-T Axes : 044 -20 019 degrees QTc Int : 696 ms Normal sinus rhythm Prolonged QT Abnormal ECG When compared with ECG of 23-MAR-2020 06:58, T wave inversion no longer evident in Anterior leads QT has lengthened Confirmed by Dayday Bullock ([id number]) on 03/24/2020 2:26:50 PM Referred By: Valente Wood Confirmed By:Guerrero Bullock
--- NOTE | 2020-03-25 08:54 | Discharge Summary ---
Date of Service March 24, 2020 Admission HPI Per Admitting Provider Patient is a 59 yo female with history of asthma, HTN, migraines, prediabetes, & IBS who presented to the ED at the recommendation of her PCP, Dr. Valente Fields for chest pain and CALDERON x 4 days. The pain has been persistent over the past 4 days throughout the day and is a pressure type pain. The pain and SOB are worse with exertion. She has pain radiating into her left chest wall, but no other radiation. The pain did not improve with her inhaler or Aleve. She has been unable to lay flat and hasn't been sleeping well because of the pain and SOB. She does have a mild cough in the mornings because of her asthma, but no cough out of the ordinary. No other URI symptoms. She did have a headache 1 or 2 days ago which was not relieved by Aleve. She does use her Dulera regularly and typically uses her albuterol 4-5 times per week. She has had history of problems with asthma, but this seems different to her. She initially thought it may be GERD symptoms, but it did not improve. No change with diet. No change in appe tite. No dysphagia, N/V/D/C. No edema or calf pain. No urinary symptoms. No blurred/double vision. EKG done in the ED showed new T wave changes/inversions in the lateral leads. BP elevated since admission- possibly situational. CXR negative. DDimer elevated. CTA Chest showed no PE, but did show mild cardiomegaly and tiny hiatal hernia. Potassium slightly low. Admission Exam Per Admitting Provider Constitutional: WD/WN, vitals as above no acute distress and not ill appearing Eyes: PERRL, conjunctivae normal, anicteric sclerae ENMT: external ear and nose normal, oropharynx normal Neck: trachea midline, no thyromegaly Respiratory: normal respiratory effort, lungs clear to auscultation Cardiovascular: RRR, no murmur, no edema Gastrointestinal: normal bowel sounds, soft, nontender, no hepatosplenomegaly Musculoskeletal:normocephalic and head atraumatic Extremities: extremities normal to inspection No edema B/L LE Skin: no rashes, warm and dry Psychiatric: A+Ox3, euthymic affect Principal Diagnosis Chest pain: Dyspnea on exertion: Hypertension: Elevated d-dimer: Asthma: Discharge Exam General- No acute distress Head- atraumatic Eyes- PERRL, EOMI, ENT- oropharynx clear Neck- supple, no JVD Lungs- clear to auscultation Heart- regular rhythm; no murmur Abdomen- normal bowel sounds, soft, nontender Extremities- no calf tenderness, No hematoma in the right radial wrist area Neuro- alert, oriented x 3; PERRL, EOMI; no facial palsy; no dysarthria Skin- warm & dry Discharge Data Allergies Allergy/AdvReac Type Severity Reaction Status Date / Time adhesive Allergy Unknown Rash Verified 03/22/20 16:27 chocolate flavor Allergy Unknown Unknown Verified 03/22/20 16:27 amoxicillin [From Augmentin] Allergy Rash Verified 03/22/20 16:27 clavulanic acid Allergy Rash Verified 03/22/20 16:27 [From Augmentin] peanut AdvReac Intermediate NUTS,PEANUTS-ABDOMINAL Verified 03/22/20 16:27 PAIN Consultations 03/22/20 18:10 ED Decision to Admit Stat 03/22/20 19:29 Consult Cardiology Routine Procedures Performed Operation Date: 03/24/20 08:00 Actual Procedures p Cath, Left with Cors and Vent - Eulogio Crenshaw DO s Fraction Flow [place] SGL Ves - Chato Presley MD s Cineradiography w/Routine Exam - Eulogio Crenshaw DO Ordered Studies 03/22/20 17:44 CT angio chest PE protocol Stat 03/24/20 07:04 CL Cath Imgs for PACS use only Routine XR chest 1V portable HISTORY: 59 years-old Female Chest Pain acute atypical chest pain COMPARISON: Chest radiographs and CTA chest 12/15/2018 TECHNIQUE: Portable AP view of the chest FINDINGS: Cardiac silhouette is mildly enlarged. Mild right hemidiaphragmatic elevation. No pneumothorax, pleural effusion, airspace consolidation or overt pulmonary edema. Bones of the chest appear grossly intact. Cholecystectomy. IMPRESSION: No acute process. ACT 112: Negative or not required by law. The above report was generated using voice recognition software. It may contain grammatical, syntax or spelling errors. Electronically signed by: Kingsley Ferraro M.D. 03/22/2020 4:37 PM Dictated: 03/22/20 1635 Transcribed: 03/22/[address] angio chest PE protocol CT DOSE: 497.70 mGy.cm HISTORY: 59 years-old Female with PE, CP, +dimer. Acute chest pain with elevated d-dimer TECHNIQUE: Multiple CTA images of the chest were obtained after the intravenous administration of 119 ml Optiray 320. Coronal and sagittal MIPS were obtained from the axial data set and were submitted for review. All measurements were obtained according to NASCET criteria. A dose lowering technique was utilized adhering to the principles of ALARA. COMPARISON: Chest radiograph of same day, CTA chest 12/15/2018 FINDINGS: CTA: Mild cardiomegaly. No pleural effusion. No thoracic aortic aneurysm or dissection. There is patency of the imaged great vessels. The pulmonary arterial tree is opacified to level of the subsegmental branches and demonstrates no filling defects to suggest pulmonary thromboembolic disease. CT CHEST: Unremarkable thyroid. There is no adenopathy. No pneumothorax, pleural effusion, overt pulmonary edema or airspace consolidation typical for pneumonia. Central airways appear patent. Tiny hiatal hernia. 10 mm hypodense left adrenal nodule compatible with adenoma. Cholecystectomy. Soft tissues and imaged breast parenchyma appear unremarkable. Bones appear intact. IMPRESSION: 1. Mild cardiomegaly without acute intrathoracic abnormality, specifically there is no evidence of pulmonary thromboembolic disease. 2. No pleural effusion or adenopathy. 3. Tiny hiatal hernia. 4. Cholecystectomy. ACT 112: Negative or not required by law. The above report was generated using voice recognition software. It may contain grammatical, syntax or spelling errors. Electronically signed by: Kingsley Ferraro M.D. 03/22/2020 6:13 PM Dictated: 03/22/201803 Transcribed: 03/22/201803 Hospital Course (1) Chest pain: (2) Dyspnea on exertion: Present on admission with chest pain with exertion EKG on admission reviewed by cardiology showed non specific repolarization changes in lateral leads CT chest negative for PE Troponin x 3 negative No arrhythmia on tele monitor Cardiology on board S/P exercise stress echo done today where she developed chest tightness on the treadmill during the stress test ECHO showed normal wall motion with EF 60-65% S/P cardiac cath done 03/24/20 revealed nonobstructive moderate mid LAD stenosis (FFR 0.88). Case discussed with cardiology that recommended medical management Continue aspirin Atorvastatin increased to 80mg daily Clinically improves OK from cardiology standpoint to discharge home Post cardiac cath instruction given to patient Keep the area for the cardiac cath clean and dry to avoid any infection Do not use creams, lotions or ointment on the wound site Do not take a bath, tub soak, go in a Jacuzzi, or swim in a pool or [place] for one week after the procedure. Do not participate in strenuous activities for 3 days after the procedure. Gradually increase your activities until you reach your normal activity level within two days after the procedure. Avoid heavy lifting (more than 10 pounds) and pushing or pulling heavy objects for the first 3 days after the procedure. (3) Hypertension: BP stable Continue Diltiazem & spironolactone. Continue monitor BP (4) Elevated d-dimer: CTA chest showed no PE Denies any LE swelling and tenderness (5) Asthma: No signs of acute exacerbations. Continue home inhalers (6) DVT prophylaxis: SCDs, ambulate CODE STATUS FULL CODE Disposition Will discharge home today Follow up with your primary care provider in 1 week Check Liver enzymes in 1-2 weeks after starting the Atorvastatin Total Time Total Time Spent Total Time Spent (In Minutes): 35 minutes Total Time Includes: Examination of the Patient, Discharge Planning, Medication Reconciliation, Communication With Other Providers and Other Discharge Plan Discharge Items Patient Disposition: Home - Self-Care Reason For Visit: CHEST PAIN Discharge Diagnosis: Chest pain: Dyspnea on exertion: Hypertension: Elevated d-dimer: Asthma: Activity: As commented below Non-emergency contact: Primary Care Provider Call non-emergency contact if: you have any medication questions Follow-up/Referrals: Valente Wood MD [Primary Care Provider] - 03/28/20 9:00 am Diet: Heart Healthy Addtl Attending Provider Instructions: Follow up with your primary care provider Dr. Wood Check LFT in 1-2 week to monitor your liver markers since starting on Atorvastatin Keep the area for the cardiac cath clean and dry to avoid any infection Do not use creams, lotions or ointment on the wound site Do not take a bath, tub soak, go in a Jacuzzi, or swim in a pool or [place] for one week after the procedure. Do not participate in strenuous activities for 3 days after the procedure. Gradually increase your activities until you reach your normal activity level within two days after the procedure. Avoid heavy lifting (more than 10 pounds) and pushing or pulling heavy objects for the first 3 days after the procedure. Pending Studies at Discharge: No Stand-Alone Forms: My [facility], Smoking Cessation Medications and DC Order Prescriptions: New atorvastatin 40 mg Tablet 80 mg PO QAM 30 Days Qty: 60 RF: 0 aspirin 81 mg Tablet,Delayed Release (Dr/Ec) 81 mg PO DAILY Qty: 30 RF: 0 Continued albuterol sulfate 2.5 mg /3 mL (0.083 %) Solution For Nebulization 2.5 mg INHALATION QID PRN (Reason: Shortness Of Breath Or Wheezing) RF: 0 diltiazem HCl 240 mg Capsule,Extended Release 24 Hr 240 mg PO QAM RF: 0 citalopram [Celexa] 20 mg Tablet 20 mg PO QAM RF: 0 albuterol sulfate [Proventil HFA] 90 mcg/actuation Hfa Aerosol Inhaler 2 puff INHALATION Q6H PRN (Reason: Shortness Of Breath Or Wheezing) RF: 0 spironolactone 50 mg Tablet 50 mg PO QAM RF: 0 topiramate [Topamax] 50 mg Tablet 50 mg PO BID RF: 0 sumatriptan succinate [Imitrex] 50 mg Tablet 50 mg PO UD PRN (Reason: Headache) RF: 0 ipratropium bromide 0.02 % Solution 2.5 ml inhalation QID PRN (Reason: Shortness Of Breath Or Wheezing) RF: 0 Dulera 200-5 mcg/actuation Hfa Aerosol Inhaler 2 puff INHALATION BID RF: 0 Discharge Orders: Discharge Order (Routine); Ordered 03/24/20 Ordered By: Phoenix Stark/Other Patient Handouts: Prediabetes, A1C Admission Data Admit Date/Time: 03/22/20 18:26 Attending Provider: Phoenix Bae Admit Provider: Lidya Lopez Primary Care Provider: Valente Wood Other Providers: Lidya Lopez ; Guillermo Mason Other Interventions: Discharge Summary Assessment (RN) Last Done: 03/24/20 15:23 DC Date/Time DO NOT enter until pt leaves facility: 03/24/20 16:39
[2020-03-25] MEDS ORDERED: ATORVASTATIN 40 MG TAB PO SCH (09:00)
== END 2020-03-24 16:39 | disposition home or self-care (01) ==
LOC: 2S 15:34 → ED 15:34 → SUATTDRO 18:26 → 2S 19:08